=== PATIENT | female | born 2000 | race Caucasian/White ===

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

== ENCOUNTER 2023-03-14 11:42 | Observation (INO) | payer MEDICAID ==
[~2023-03-14] VITALS: Ht 157.5 cm; Wt 53.5 kg
[2023-03-14] MEDS ORDERED: PNV1TABL76 MT (14:01)
== END 2023-03-14 14:05 | disposition home or self-care (01) ==
LOC: 8 EST LDRP 11:42
PROVIDERS: ADMIT Obstetrics & Gynecology; ATTEND Obstetrics & Gynecology
DX: O46.92 Antepartum hemorrhage, unspecified, second trimester (principal); Z3A.20 20 weeks gestation of pregnancy
CPT/HCPCS: 59025; 76805; 76817; G0378; 99281

== ENCOUNTER 2023-06-29 18:00 | Observation (INO) | payer BC, MEDICAID ==
[~2023-06-29] VITALS: Ht 157.5 cm; Wt 63.0 kg
[~2023-06-29 18:00] MED LIST: PNV1TABL76 MT
[2023-06-29 20:20] LABS: BASOPHILS % 0.5 % (0.0-2.0); DIFFERENTIAL COMMENT 0; EOSINOPHILS % 0.8 % (0.0-5.0); HEMATOCRIT. 24.3 % (36.0-48.0); HEMOGLOBIN. 7.8 g/dL (12.0-16.0); LYMPHOCYTES % 24.2 % (20.0-50.0); MEAN CORPUSCULAR HEMOGLOBIN 23.8 pg (28.0-32.0); MEAN CORPUSCULAR VOLUME 74.4 fL (81.0-99.0); MEAN PLATELET VOLUME 8.3 fl (7.4-10.4); MONOCYTES % 6.9 % (2.0-8.0); NEUTROPHILS % 67.6 % (40.0-76.0); PLATELET 212 x1000/uL (130-400); RED BLOOD CELL COUNT 3.26 mill/uL (4.2-5.4); RED CELL DISTRIBUTION WIDTH 16.2 % (11.6-14.6); WHITE BLOOD COUNT 4.6 x1000/uL (4.5-11.0)
[2023-06-29 20:30] LABS: CHLORIDE 110 mEq/L (98-107); INDEX HEMOLYSI 1 (1-3); INDEX ICTERIC 1 (1-4); INDEX LIPEMIC 1 (1-3); POTASSIUM 3.5 mEq/L (3.5-5.1); SODIUM 138 mEq/L (136-145)
[2023-06-29 20:37] LABS: ALANINE AMINOTRANSFERASE 20 IU/L (13-61); ALBUMIN 2.2 g/dL (3.4-5.0); ASPARTATE AMINOTRANSFERASE 18 IU/L (15-37); BILIRUBIN TOTAL 0.3 mg/dL (0.1-1.0); CALCIUM 7.6 mg/dL (8.5-10.1); CARBON DIOXIDE 23 mEq/L (21-32); CREATININE 0.5 mg/dL (0.6-1.3); GLUCOSE 107 mg/dL (70-105); PROTEIN TOTAL 5.9 g/dL (6.0-8.3); UREA NITROGEN BLOOD 6 mg/dL (7-21)
[2023-06-29] MEDS: URSODIOL 300MG CAPSULE PO SCH (20:46)
[2023-06-29 21:51] LABS: HEPATITIS B SURFACE ANTIGEN NEGATIVE
[2023-06-29 22:19] LABS: HEPATITIS B CORE AB IGM NEGATIVE; HEPATITIS C VIR.AB 0.12 INDEXVAL (0.00-0.80)
[2023-06-29 22:21] LABS: HEPATITIS A AB IGM NEGATIVE (NEGATIVE)
[2023-06-30] MEDS ORDERED: URSO300C4 PO (07:23)
[2023-06-30] MEDS: URSODIOL 300MG CAPSULE PO SCH (08:03)
== END 2023-06-30 08:15 | disposition still patient (30) ==
LOC: 8 EST LDRP 18:00
PROVIDERS: ADMIT Obstetrics & Gynecology; ATTEND Obstetrics & Gynecology
DX: O26.893 Other specified pregnancy related conditions, third trimester (principal); L29.9 Pruritus, unspecified; Z3A.35 35 weeks gestation of pregnancy
CPT/HCPCS: 59025; 80053; 85025; 87340; 86803; 36415; 86705; 86709; 76818; 76805; G0378 ×3; 99281

== ENCOUNTER 2023-07-26 02:34 | Inpatient (IN) | payer BC, MEDICAID ==
[~2023-07-26] VITALS: Ht 157.5 cm; Wt 56.7 kg
[~2023-07-26 02:34] MED LIST changes: +URSO300C4 PO
[2023-07-26] MEDS ORDERED: LACTATED RINGERS 1,000 ML IV ONE (03:45)
[2023-07-26] MEDS ORDERED: NALOXONE HCL 0.4 MG/ML 1ML VIAL IM PRN (04:00)
[2023-07-26] MEDS ORDERED: DIPHENHYDRAMINE 50MG/ML VIAL IM PRN (04:00)
[2023-07-26] MEDS ORDERED: NALOXONE HCL 0.4 MG/ML 1ML VIAL IV PRN (04:00)
[2023-07-26] MEDS ORDERED: LIDOCAINE HCL 1% 20ML VIAL (Pyxis) INJ INFIL SCH (04:00)
[2023-07-26 04:37] LABS: BASOPHILS % 0.3 % (0.0-2.0); EOSINOPHILS % 0.1 % (0.0-5.0); HEMATOCRIT. 28.1 % (36.0-48.0); HEMOGLOBIN. 9.1 g/dL (12.0-16.0); LYMPHOCYTES % 10.5 % (20.0-50.0); MEAN CORPUSCULAR HGB CONC 32.3 g/dL (31.0-37.0); MEAN CORPUSCULAR VOLUME 77.4 fL (81.0-99.0); MEAN PLATELET VOLUME 8.7 fl (7.4-10.4); MONOCYTES % 6.2 % (2.0-8.0); NEUTROPHILS % 82.9 % (40.0-76.0); PLATELET 174 x1000/uL (130-400); RED BLOOD CELL COUNT 3.63 mill/uL (4.2-5.4); RED CELL DISTRIBUTION WIDTH 26.8 % (11.6-14.6); WHITE BLOOD COUNT 9.5 x1000/uL (4.5-11.0)
[2023-07-26 04:52] LABS: DIFFERENTIAL COMMENT 1
[2023-07-26 04:53] LABS: ADD RBC MORPHOLOGY YES
[2023-07-26 05:17] LABS: INR 0.9; PARTIAL THROMBOPLASTIN TIME 25.9 sec (23.4-31.0); PROTHROMBIN TIME 9.5 sec (9.6-11.0)
[2023-07-26 05:19] LABS: RAPID HIV SCREEN NEGATIVE (NEGATIVE)
[2023-07-26 05:42] LABS: RUBELLA IGG 77.3 IU/mL (4.99-10)
[2023-07-26 05:43] LABS: HEPATITIS B SURFACE ANTIGEN NEGATIVE
[2023-07-26] MEDS ORDERED: ACETAMINOPHEN 500MG TABLET PO ONE (08:30)
[2023-07-26] MEDS: LACTATED RINGERS 1,000 ML IV SCH ×3 (08:50→22:45)
[2023-07-26] MEDS: ACETAMINOPHEN 500MG TABLET PO SCH ×3 (08:50→23:00)
[2023-07-26 10:01] LABS: COLOR URINE YELLOW (YELLOW)
[2023-07-26 10:02] LABS: CLARITY URINE HAZY (CLEAR); GLUCOSE URINE NEGATIVE (NEGATIVE); PH URINE 5.5 (4.5-8.0); PROTEIN URINE TRACE (NEGATIVE); SPECIFIC GRAVITY URINE 1.025 (1.005-1.030)
[2023-07-26 10:03] LABS: KETONES URINE 4+ (NEGATIVE); LEUKOCYTE ESTERASE URINE 3+ (NEGATIVE); NITRITE URINE NEGATIVE (NEGATIVE); OCCULT BLOOD URINE NEGATIVE (NEGATIVE)
[2023-07-26 10:05] LABS: RBC URINE 0-2 /hpf (0-2); SQUAMOUS EPITHELIAL CELL URINE 1+ /lpf (RARE/1+)
[2023-07-26 10:06] LABS: BACTERIA URINE 1+; YEAST URINE NONE SEEN
[2023-07-26 12:07] LABS: ANISOCYTOSIS 3+; MICROCYTOSIS 1+; PLATELET ESTIMATE NORMAL
[2023-07-26] MEDS: OXYTOCIN 30 UNITS/500ML NS PMX 500 ML IV SCH ×2 (13:26→18:36)
[2023-07-26] MEDS: CEFAZOLIN 2,000 MG in DEXT 5% WATER 100 ML IV SCH ×2 (13:34→22:07)
[2023-07-26] MEDS ORDERED: MINERAL OIL 30ML BOTTLE PO NR (14:45)
[2023-07-26] MEDS ORDERED: FENTANYL CITRATE/PF 50MCG/ML 2ML VIAL IV NR (18:15)
[2023-07-26] MEDS ORDERED: OXYTOCIN 30 UNITS/500ML NS PMX 500 ML IV SCH (18:30)
[2023-07-26] MEDS ORDERED: RHO(D) IMMUNE GLOBULIN 300 MCG/SYR IM PRN (18:30)
[2023-07-26] MEDS ORDERED: IBUPROFEN 400MG TABLET PO PRN (18:30)
[2023-07-26] MEDS ORDERED: IBUPROFEN 800MG TABLET PO PRN (18:30)
[2023-07-26] MEDS ORDERED: LANOLIN OINT 7GM TUBE TOP PRN (18:30)
[2023-07-26] MEDS ORDERED: DIPHENHYDRAMINE 25MG CAPSULE PO PRN (18:30)
[2023-07-26] MEDS ORDERED: METHYLERGONOVINE MALEATE 0.2 MG/ML IM PRN (18:30)
[2023-07-26 20:15] VITALS: BP 122/80; PULSE 95; RESP 18; TEMP 98.4; O2SAT 97
[2023-07-26] MEDS: GENTAMICIN 120MG PREMIX 100 ML IV SCH (20:57)
[2023-07-26] MEDS: DOCUSATE SODIUM 100MG CAPSULE PO SCH (20:57)
[2023-07-26] MEDS ORDERED: CEFAZOLIN SODIUM 1000MG/VIAL ONE (21:48)
[2023-07-26 22:02] LABS: CALCIUM 7.7 mg/dL (8.5-10.1); CHLORIDE 111 mEq/L (98-107); INDEX HEMOLYSI 1 (1-3); INDEX ICTERIC 1 (1-4); INDEX LIPEMIC 1 (1-3); SODIUM 137 mEq/L (136-145)
[2023-07-26 22:05] LABS: CARBON DIOXIDE 20 mEq/L (21-32); CREATININE 0.6 mg/dL (0.6-1.3); GLUCOSE 148 mg/dL (70-105); UREA NITROGEN BLOOD 5 mg/dL (7-21)
[2023-07-26] MEDS: CLINDAMYCIN IN 0.9 % SOD CHLOR 50 ML IV SCH (22:46)
[2023-07-26 23:00] VITALS: BP 119/73; PULSE 99; RESP 18; TEMP 101.5
[2023-07-27 03:45] VITALS: BP 105/71; PULSE 84; RESP 18; TEMP 98.4
[2023-07-27] MEDS: CEFAZOLIN 2,000 MG in DEXT 5% WATER 100 ML IV SCH ×2 (05:51→22:11)
[2023-07-27 06:37] LABS: BASOPHILS % 0.4 % (0.0-2.0); HEMATOCRIT. 26.3 % (36.0-48.0); HEMOGLOBIN. 8.5 g/dL (12.0-16.0); LYMPHOCYTES % 8.6 % (20.0-50.0); MEAN CORPUSCULAR HEMOGLOBIN 25.3 pg (28.0-32.0); MEAN CORPUSCULAR HGB CONC 32.2 g/dL (31.0-37.0); MEAN CORPUSCULAR VOLUME 78.4 fL (81.0-99.0); MEAN PLATELET VOLUME 8.8 fl (7.4-10.4); MONOCYTES % 4.2 % (2.0-8.0); NEUTROPHILS % 86.8 % (40.0-76.0); PLATELET 155 x1000/uL (130-400); RED BLOOD CELL COUNT 3.35 mill/uL (4.2-5.4); RED CELL DISTRIBUTION WIDTH 27.2 % (11.6-14.6); WHITE BLOOD COUNT 14.7 x1000/uL (4.5-11.0)
[2023-07-27] MEDS: CLINDAMYCIN IN 0.9 % SOD CHLOR 50 ML IV SCH (06:47)
[2023-07-27 07:03] LABS: DIFFERENTIAL COMMENT 1
[2023-07-27 07:04] LABS: ADD RBC MORPHOLOGY NO
[2023-07-27 08:00] VITALS: BP 104/68; PULSE 84; RESP 18; TEMP 98.2; O2SAT 98
[2023-07-27] MEDS: PRENATAL VIT/FE FUMARATE/FA TABLET PO SCH (08:39)
[2023-07-27] MEDS: GENTAMICIN 120MG PREMIX 100 ML IV SCH (08:39)
[2023-07-27] MEDS ORDERED: GENTAMICIN 100MG PREMIX 50 ML IV SCH (09:00)
[2023-07-27 09:05] LABS: *AMPHETAMINES SCREEN URINE NEGATIVE (NEGATIVE); *BARBITURATES SCREEN URINE NEGATIVE (NEGATIVE); *BENZODIAZEPINES SCREEN URINE NEGATIVE (NEGATIVE); *COCAINE SCREEN URINE NEGATIVE (NEGATIVE); CANNABINOID URINE SCREEN NEGATIVE (NEGATIVE); ECSTASY MDMA SCREEN URINE NEGATIVE (NEGATIVE); METHADONE URINE SCREEN NEGATIVE (NEGATIVE); OPIATES URINE SCREEN NEGATIVE (NEGATIVE); PHENCYCLIDINE URINE SCREEN NEGATIVE (NEGATIVE)
[2023-07-27 12:30] VITALS: TEMP 98
[2023-07-27 16:30] VITALS: BP 103/64; PULSE 80; RESP 18; TEMP 98
[2023-07-27 19:30] VITALS: BP 113/45; PULSE 98; RESP 20; TEMP 97.9; O2SAT 95
[2023-07-27] MEDS: DOCUSATE SODIUM 100MG CAPSULE PO SCH (22:11)
[2023-07-28 04:00] VITALS: BP 90/57; PULSE 67; RESP 20; TEMP 97.8
[2023-07-28] MEDS: CEFAZOLIN 2,000 MG in DEXT 5% WATER 100 ML IV SCH (06:07)
[2023-07-28 08:15] VITALS: BP 113/75; PULSE 67; RESP 20; TEMP 98.8; O2SAT 100
[2023-07-28] MEDS: PRENATAL VIT/FE FUMARATE/FA TABLET PO SCH (08:59)
[2023-07-28 09:20] LABS: CHLORIDE 106 mEq/L (98-107); INDEX HEMOLYSI 1 (1-3); INDEX ICTERIC 1 (1-4); INDEX LIPEMIC 1 (1-3); POTASSIUM 3.9 mEq/L (3.5-5.1); SODIUM 139 mEq/L (136-145)
[2023-07-28 09:23] LABS: CALCIUM 9.2 mg/dL (8.5-10.1); CARBON DIOXIDE 24 mEq/L (21-32); CREATININE 0.6 mg/dL (0.6-1.3); GLUCOSE 99 mg/dL (70-105); UREA NITROGEN BLOOD 8 mg/dL (7-21)
[2023-07-28 09:31] LABS: GENTAMICIN RANDOM 0.3 ug/mL
[2023-07-28] MEDS ORDERED: GENTAMICIN 100MG PREMIX 50 ML IV SCH (11:30)
[2023-07-28] MEDS ORDERED: CEPH500T MT (14:31)
[2023-07-28] MEDS ORDERED: IBUP-2030 PO (14:31)
== END 2023-07-28 16:45 | disposition home or self-care (01) | DRG 560 ==
LOC: OBSVTOIN 02:34 → 8 EST LDRP 02:34 → 8EST 20:15
PROVIDERS: ADMIT Obstetrics & Gynecology; ATTEND Obstetrics & Gynecology
PROC: 10E0XZZ Delivery of Products of Conception, External Approach (ICD-10-PCS; principal; 2023-07-26)
PROC: 3E0R3BZ Introduction of Anesthetic Agent into Spinal Canal, Percutaneous Approach (ICD-10-PCS; 2023-07-26)
PROC: 00HU33Z Insertion of Infusion Device into Spinal Canal, Percutaneous Approach (ICD-10-PCS; 2023-07-26)
DX: O48.0 Post-term pregnancy (principal); Z37.0 Single live birth; O75.2 Pyrexia during labor, not elsewhere classified; O69.81X0 Labor and delivery complicated by cord around neck, without compression, not applicable or unspecified; O99.892 Other specified diseases and conditions complicating childbirth; O77.0 Labor and delivery complicated by meconium in amniotic fluid; Z20.822 Contact with and (suspected) exposure to COVID-19; R00.0 Tachycardia, unspecified; O76 Abnormality in fetal heart rate and rhythm complicating labor and delivery; Z3A.39 39 weeks gestation of pregnancy
CPT/HCPCS: 36415; 76815; 76818; 80048; 80170; 80305; 81003; 85025; 86592; 86703; 86762; 86850; 86900; 87340; 87426; 88307; 99281; J0690; J1580; J3490; J7060; J7120; A4315; J2590